=== PATIENT | female | born 1990 | race Caucasian/White ===

== ENCOUNTER 2016-06-14 20:39 | Emergency (ER) | payer BC ==
[~2016-06-14] VITALS: Ht 165.1 cm; Wt 72.7 kg
[~2016-06-14 20:39] MED LIST: ALLEGRA180 MG PO; ATARAX50 MG PO; BIRTH CONTROL PILL; CHLORZOXAZONE500 M1 PO; CLONAZEPAM1 M1 PO; CYCLOBENZAPRINE5 MG PO; DUONEB 3 MG/3 ML3 ML IH; FLONASEALLERGY NS; LEXAPRO 10MG10 MG PO; MACROBID 1100 MG/CAP PO; MELOXICAM15 MG PO; NEBULIZER MED; OCELLA 3 MG-0.01 TAB PO; PEPCID 20MG TAB20 MG PO; PREDNISONE20 MG PO; PRIL40 PO; PYRIDIUM 100MG100 MG PO; VENLAFAXINE150 MG PO; VENTOLIN0.09 MG IH
[2016-06-14 20:41] VITALS: TEMP 97.9
[2016-06-14] MEDS ORDERED: DOXYCYCLINE 10100 MG PO (20:44)
[2016-06-14] MEDS ORDERED: VIIBRYD40 MG PO (20:44)
[2016-06-14] MEDS ORDERED: SINGULAIR 110 MG/TAB PO (20:45)
[2016-06-14] MEDS ORDERED: VISTARIL 2525 MG/CAP PO (20:45)
[2016-06-14 22:19] VITALS: BP 128/68; PULSE 68
== END 2016-06-14 22:21 | disposition home or self-care (01) ==
LOC: COL.ER 20:39
DX: S61.412A Laceration without foreign body of left hand, initial encounter (principal); W26.0XXA Contact with knife, initial encounter; Z23 Encounter for immunization

== ENCOUNTER → 2016-06-16 | Outpatient (CLI) | payer BC ==
[~2016-06-16] MED LIST changes: +00186-0372-20 INH; +ALLEGRA ALLERGY60 MG PO; +DOXYCYCLINE 10100 MG PO; +SINGULAIR 110 MG/TAB PO; +VIIBRYD40 MG PO; +VISTARIL 2525 MG/CAP PO; +VITAMIND3 5000
[2016-06-19 16:38] LABS: LYME IgG WESTERN BLOT Negative (Negative)
== END ==
LOC: COL.LAB 10:10
PROVIDERS: Internal Medicine Infectious Disease
DX: R53.82 Chronic fatigue, unspecified (principal)

== ENCOUNTER → 2016-08-16 | Outpatient (CLI) | payer BC ==
[~2016-08-16] VITALS: Ht 165.1 cm; Wt 74.8 kg
== END ==
LOC: SUN.DT 14:43
DX: K58.9 Irritable bowel syndrome, unspecified (principal); Z71.3 Dietary counseling and surveillance; Z68.27 Body mass index [BMI] 27.0-27.9, adult

== ENCOUNTER 2016-09-04 15:18 | Emergency (ER) | payer BC ==
[~2016-09-04] VITALS: Ht 167.6 cm; Wt 75.0 kg
[~2016-09-04 15:18] MED LIST changes: -00186-0372-20 INH; -ALLEGRA ALLERGY60 MG PO; -VITAMIND3 5000
[2016-09-04 15:29] VITALS: TEMP 99
[2016-09-04] MEDS ORDERED: ALLEGRA ALLERGY60 MG PO (15:29)
[2016-09-04] MEDS ORDERED: 00186-0372-20 INH (15:29)
[2016-09-04] MEDS ORDERED: VITAMIND3 5000 (15:29)
[2016-09-04 16:01] LABS: BASO # 0.1 (0.0-0.2); BASO % 0.6 % (0.0-2.0); EOS # 0.1 (0.0-0.7); EOS % 1.2 % (0-4.0); GRAN # 4.8 (1.4-6.5); GRAN % 55.3 % (42.2-75.2); HEMATOCRIT 41.4 % (37.0-47.0); HEMOGLOBIN 14.1 g/dl (12.5-16.0); LYMPH # 3.1 (1.2-3.4); LYMPH % 35.7 % (20.0-51.0); MEAN CELL VOLUME 92 fl (80.0-100.0); MEAN CORPUSCULAR HEMOGLOBIN 31 pg (27.0-31.0); MEAN CORPUSCULAR HGB CONC 34 g/dl (33.0-37.0); MEAN PLATELET VOLUME 10.1 fl (7.4-10.4); MONO # 0.6 (0.1-0.6); PLATELET COUNT 276 K/mm3 (130-400); RED BLOOD COUNT 4.51 M/mm3 (4.10-5.30); REDCELL DISTRIBUTION WIDTH-CV 12.6 % (11.5-14.5); WHITE BLOOD COUNT 8.6 K/mm3 (4.8-10.8)
[2016-09-04 16:15] LABS: ADJUSTED CALCIUM 9.3 mg/dL (8.4-10.2); ALANINE AMINOTRANSFERASE 32 U/L (9-52); ALBUMIN 4.8 gm/dL (3.5-5.0); ALKALINE PHOSPHATASE 51 U/L (50-136); ANION GAP 13 mmol/L (7-16); BILIRUBIN,TOTAL 0.9 mg/dL (0.0-1.0); BLOOD UREA NITROGEN 10 mg/dL (7-17); CALCIUM 9.9 mg/dL (8.4-10.2); CARBON DIOXIDE 23 mmol/L (22-30); CHLORIDE 101 mmol/L (98-107); CREATININE, serum 0.71 mg/dL (0.52-1.25); GLUCOSE 130 mg/dL (74-106); POTASSIUM 3.7 mmol/L (3.4-5.0); SODIUM 137 mmol/L (137-145)
[2016-09-04 16:31] LABS: AMPHETAMINE URINE NEGATIVE; BARBITURATES URINE NEGATIVE; BENZODIAZEPINES URINE NEGATIVE; BUPRENORPHINE URINE NEGATIVE; METHADONE URINE NEGATIVE; OPIATES URINE NEGATIVE; OXYCODONE URINE NEGATIVE; PHENCYCLIDINE URINE NEGATIVE; PROPOXYPHENE URINE NEGATIVE; THC CANNABINOIDS URINE NEGATIVE
[2016-09-04 16:46] LABS: ACETAMINOPHEN < 10 ug/mL (10-30); SALICYLATE < 1.0 mg/dL
[2016-09-04 19:42] VITALS: BP 122/80; PULSE 72
== END 2016-09-04 19:44 ==
LOC: COL.ER 15:18
PROVIDERS: Emergency Medicine
DX: R45.851 Suicidal ideations (principal); F32.9 Major depressive disorder, single episode, unspecified; F43.10 Post-traumatic stress disorder, unspecified

== ENCOUNTER → 2016-10-31 | Outpatient (CLI) | payer BC ==
[~2016-10-31] MED LIST changes: +00186-0372-20 INH; +ALLEGRA ALLERGY60 MG PO; +VITAMIND3 5000
== END ==
LOC: COL.LAB 14:08
DX: R53.82 Chronic fatigue, unspecified (principal); K58.9 Irritable bowel syndrome, unspecified

== ENCOUNTER 2017-01-26 16:44 | Emergency (ER) | payer BC ==
[~2017-01-26] VITALS: Ht 167.6 cm; Wt 81.8 kg
[2017-01-26 16:55] VITALS: BP 121/76; TEMP 98.3
[2017-01-26 19:10] VITALS: PULSE 65
== END 2017-01-26 19:05 | disposition home or self-care (01) ==
LOC: COL.ER 16:44
DX: G43.909 Migraine, unspecified, not intractable, without status migrainosus (principal); F41.9 Anxiety disorder, unspecified
CPT/HCPCS: J1200; J1885; J2550; J2765; J7030